=== PATIENT | male | born 1985 | race Caucasian/White ===

== ENCOUNTER 2018-01-19 16:19 | Emergency (ER) | payer OTHER ==
[~2018-01-19] VITALS: Ht 180.3 cm; Wt 142.9 kg
[2018-01-19] MEDS ORDERED: IPRATRPIUM/ALBUTEROL 0.5/2.5MG 3 ML NEBU. ONE (17:09)
[2018-01-19] MEDS ORDERED: IPRATRPIUM/ALBUTEROL 0.5/2.5MG 3 ML NEBU. NEB ONE (17:15)
--- NOTE | 2018-01-19 17:34 | ED.ADGEN ---
Past History Past Medical History: Diabetes, GERD, Other Past Surgical History: No Surgical History Alcohol Use: None Drug Use: None Adult General Chief Complaint Chief Complaint " .. I still got this cough... I ve been sick the past 9 days.. I went to [place] and I followed with Dr. Gallegos.. and just completed my Z- pack... but I am still coughing..." " I coughing so much ... I suspect it made my chest sore..." HPI HPI Patient is a 32 year old male who presents with above hx and complaints of persistent cough. Pt. complaints of generalized chest pain with cough and deep breaths. Pt. denies any trauma. Patient denies any specific ill contacts. Patient denies any travel. Patient denies any history of cardiac disorder. Patient does have a history of reflux. Patient normally follows with Dr. Gallegos. Patient states he was compliant completing his Z-Loenid. Patient also complaining of some subjective fevers. Cough or nonproductive. Review of Systems Review of Systems Constitutional: History of fever or chills [] Eyes: Denies change in visual acuity, redness, or eye pain [] HENT: Denies nasal congestion or sore throat [] Respiratory: History of cough and wheezing Cardiovascular: No additional information not addressed in HPI [] GI: Denies abdominal pain, nausea, vomiting, bloody stools or diarrhea [] : Denies dysuria or hematuria [] Musculoskeletal: Denies back pain or joint pain [] Integument: Denies rash or skin lesions [] Neurologic: Denies headache, focal weakness or sensory changes [] Endocrine: Denies polyuria or polydipsia [] All other systems were reviewed and found to be within normal limits, except as documented in this note. Family History Family History Noncontributory Current Medications Current Medications Current Medications Medications (Trade) Dose Ordered Sig/Matheus Start Time Stop Time Status Last Admin Dose Admin Albuterol Sulfate (Ventolin Hfa) 2 puff 1X ONCE 01/19/18 18:00 01/19/18 18:01 DC 01/19/18 19:29 2 PUFF Albuterol/ Ipratropium (Duoneb) 3 ml STK-MED ONCE 01/19/18 17:09 01/19/18 17:10 DC Ceftriaxone Sodium (Rocephin Im) 1 gm 1X ONCE 01/19/18 23:30 01/19/18 23:31 DC 01/19/18 23:43 1 GM Info (Do NOT chart on this entry -- for MONITORING) 1 each PRN DAILY PRN 01/19/18 21:30 01/20/18 02:39 DC Iohexol (Omnipaque 300 Mg/ml) 75 ml 1X ONCE 01/19/18 21:30 01/19/18 21:31 DC Lactated Ringer's 1,000 ml @ 100 mls/hr Q10H 01/19/18 18:00 01/20/18 02:39 DC 01/19/18 19:21 100 MLS/HR Prednisone (Prednisone) 50 mg 1X ONCE 01/19/18 18:00 01/19/18 18:01 DC 01/19/18 19:17 50 MG Allergies Allergies Allergies Coded Allergies Type Severity Reaction Last Updated Verified codeine Allergy Unknown 09/29/14 No Physical Exam Physical Exam Constitutional: Moderately acute distress, non-toxic appearance. [] HENT: Normocephalic, atraumatic, bilateral external ears normal, oropharynx moist, no oral exudates, nose normal. [] Eyes: PERRLA, EOMI, conjunctiva normal, no discharge. [] Neck: Normal range of motion, no tenderness, supple, no stridor. More than 17 inches circumference Cardiovascular:Heart rate regular rhythm, no murmur []PMI to the left Lungs & Thorax: Bilateral breath sounds equal with scattered wheezes for prominent in bilateral bases on auscultation [] Abdomen: Bowel sounds normal, soft, no tenderness, no masses, no pulsatile masses. [] Obese Skin: Warm, dry, no erythema, no rash. [] Back: No tenderness, no CVA tenderness. [] Extremities: No tenderness, no cyanosis, no clubbing, ROM intact, no edema. No cording appreciated Neurologic: Alert and oriented X 3, normal motor function, normal sensory function, no focal deficits noted. [] Psychologic: Affect anxious, judgement normal, mood normal. [] Current Patient Data Vital Signs Vital Signs Date Time Temp Pulse Resp B/P (MAP) Pulse Ox O2 Delivery O2 Flow Rate FiO2 01/20/18 02:20 98.0 75 20 130/63 (85) 94 Room Air Lab Results Laboratory Tests Test 01/19/18 17:20 01/19/18 19:25 01/19/18 20:09 01/19/18 23:30 Urine Collection Type Unknown Urine Color Straw Urine Clarity Clear Urine pH 7.0 Urine Specific [place] 1.015 Urine Protein Neg (NEG-TRACE) Urine Glucose (UA) Neg mg/dL (NEG) Urine Ketones (Stick) Neg mg/dL (NEG) Urine Blood Small (NEG) Urine Nitrite Neg (NEG) Urine Bilirubin Neg (NEG) Urine Urobilinogen Dipstick 0.2 mg/dL (0.2 mg/dL) Urine Leukocyte Esterase Neg (NEG) Urine RBC 3-5 /HPF (0-2) Urine WBC 1-4 /HPF (0-4) Urine Squamous Epithelial Cells Occ /LPF Urine Bacteria 0 /HPF (0-FEW) Urine Opiates Screen Neg (NEG) Urine Methadone Screen Neg (NEG) Urine Barbiturates Neg (NEG) Urine Phencyclidine Screen Neg (NEG) Urine Amphetamine/Methamphetamine Neg (NEG) Urine Benzodiazepines Screen Neg (NEG) Urine Cocaine Screen Neg (NEG) Urine Cannabinoids Screen Neg (NEG) Urine Ethyl Alcohol Neg (NEG) White Blood Count 12.6 x10^3/uL (4.0-11.0) H Red Blood Count 4.46 x10^6/uL (4.30-5.70) Hemoglobin 13.7 g/dL (13.0-17.5) Hematocrit 40.2 % (39.0-53.0) Mean Corpuscular Volume 90 fL (79-100) Mean Corpuscular Hemoglobin 31 pg (25-35) Mean Corpuscular Hemoglobin Concent 34 g/dL (31-37) Red Cell Distribution Width 13.5 % (11.5-14.5) Platelet Count 274 x10^3/uL (140-400) Neutrophils (%) (Auto) 74 % (31-73) H Lymphocytes (%) (Auto) 15 % (24-48) L Monocytes (%) (Auto) 9 % (0-9) Eosinophils (%) (Auto) 2 % (0-3) Basophils (%) (Auto) 0 % (0-3) Neutrophils # (Auto) 9.3 x10^3uL (1.8-7.7) H Lymphocytes # (Auto) 1.9 x10^3/uL (1.0-4.8) Monocytes # (Auto) 1.1 x10^3/uL (0.0-1.1) Eosinophils # (Auto) 0.2 x10^3/uL (0.0-0.7) Basophils # (Auto) 0.0 x10^3/uL (0.0-0.2) Prothrombin Time 11.5 SEC (9.4-11.4) H Prothrombin Time INR 1.1 (0.9-1.1) PTT 26 SEC (23-33) D-Dimer (Karolyn) 0.61 mg/L (0.00-0.50) H Sodium Level 139 mmol/L (136-145) Potassium Level 3.9 mmol/L (3.5-5.1) Chloride Level 101 mmol/L (98-107) Carbon Dioxide Level 31 mmol/L (21-32) Anion Gap 7 (6-14) Blood Urea Nitrogen 13 mg/dL (8-26) Creatinine 0.7 mg/dL (0.7-1.3) Estimated GFR (Cockcroft-Gault) 129.1 Glucose Level 110 mg/dL (70-99) H Calcium Level 9.1 mg/dL (8.5-10.1) Magnesium Level 2.2 mg/dL (1.8-2.4) Total Bilirubin 0.6 mg/dL (0.2-1.0) Direct Bilirubin 0.1 mg/dL (0.0-0.2) Aspartate Amino Transferase (AST) 23 U/L (15-37) Alanine Aminotransferase (ALT) 35 U/L (16-63) Alkaline Phosphatase 86 U/L (46-116) Creatine Kinase 48 U/L (39-308) Creatine Kinase MB (Mass) 0.8 ng/mL (0.0-3.6) Creatine Kinase MB Relative Index 1.7 % (0-4) Troponin I Quantitative < 0.017 ng/mL (0-0.055) GL-Osi-R-Type Natriuretic Peptide 88 pg/mL (0-124) Total Protein 7.9 g/dL (6.4-8.2) Albumin 3.4 g/dL (3.4-5.0) Influenza Type A (Rapid) Negative (NEGATIVE) Influenza Type B (Rapid) Negative (NEGATIVE) EKG EKG My interpretation EKG shows sinus rhythm at 88 bpm. No findings acute STEMI of contralateral changes.[] Radiology/Procedures Radiology/Procedures My interpretation of chest x-ray shortness borderline cardiomegaly. Has some bilateral basilar atelectasis/infiltrate. No obvious pneumothorax or large consolidated pneumonia[] CT chest shows bilateral basilar atelectasis. CT for pulmonary embolism refused by patient. Course & Med Decision Making Course & Med Decision Making Pertinent Labs and Imaging studies reviewed. (See chart for details). Patient refused placement IV because he did not like IV sticks-patient aware that with out IV could not receive a contrast CT eval. Patient exhibits UCAR capacity. Will give an addition course of Keflex 500 tid , Prednisone 50 x 5 days and Ventolin qid. To follow up with primary. Daily ASA. Return if any concerns. 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 - [] Final Impression Final Impression 1. Cough[] 2. Leukocytosis 3. Elevated d-dimer 4. Bronchitis Problems: Dragon Disclaimer Dragon Disclaimer This electronic medical record was generated, in whole or in part, using a voice recognition dictation system. VASU KING MD Jan 19, 2018 17:34
[2018-01-19] MEDS ORDERED: ALBUTEROL SULFATE 8GM INHALER. INH ONE (18:00)
[2018-01-19] MEDS ORDERED: predniSONE 10 MG TABLET PO ONE (18:00)
[2018-01-19] MEDS ORDERED: IV RINGERS SOLUTION,LACTATED 1,000 ML IV SCH (18:00)
[2018-01-19 18:05] LABS: BARBITURATES NEG (NEG); BENZODIAZEPINES NEG (NEG); CANNABINOIDS NEG (NEG); COCAINE NEG (NEG); METHADONE NEG (NEG); OPIATES NEG (NEG); PHENCYCLIDINE NEG (NEG)
[2018-01-19 18:08] LABS: AMPHETAMINE/METHAMPHETAMINE NEG (NEG)
[2018-01-19 18:13] LABS: BACTERIA,URINE 0 /HPF (0-FEW); BILIRUBIN,URINE NEG (NEG); CLARITY,URINE CLEAR; COLOR,URINE STRAW; GLUCOSE,URINE NEG (NEG); NITRITE,URINE NEG (NEG); SQUAMOUS EPITHELIAL CELL,UR OCC /LPF; UROBILINOGEN,URINE 0.2 mg/dL (0.2 mg/dL)
--- NOTE | 2018-01-19 18:21 | EKG ---
[address] [address] Test Date: 2018-01-19 Test Time: 17:02:52 Pat Name: TARA LEARY Department: Room: Gender: M [employer]: : 1985 Requested By: VASU KING Order Number: [id number] Reading MD: Measurements Intervals [place] Rate: 88 P: 48 MT: 146 QRS: 59 QRSD: 90 T: 41 QT: 344 QTc: 420 Interpretive Statements SINUS RHYTHM NO SPECIFIC ECG ABNORMALITIES RI6.01 No previous ECG available for comparison
[2018-01-19 20:22] LABS: BASO % 0 % (0-3); EOS # 0.2 x10^3/uL (0.0-0.7); EOS % 2 % (0-3); HEMATOCRIT 40.2 % (39.0-53.0); HEMOGLOBIN 13.7 g/dL (13.0-17.5); LYMPH # 1.9 x10^3/uL (1.0-4.8); LYMPH % 15 % (24-48); MEAN CORPUSCULAR HEMOGLOBIN 31 pg (25-35); MEAN CORPUSCULAR HGB CONC 34 g/dL (31-37); MEAN CORPUSCULAR VOLUME 90 fL (79-100); MONO # 1.1 x10^3/uL (0.0-1.1); MONO % 9 % (0-9); NEUT # 9.3 x10^3uL (1.8-7.7); NEUT % 74 % (31-73); PLATELET COUNT 274 x10^3/uL (140-400); RED BLOOD COUNT 4.46 x10^6/uL (4.30-5.70); RED CELL DISTRIBUTION WIDTH 13.5 % (11.5-14.5); WHITE BLOOD COUNT 12.6 x10^3/uL (4.0-11.0)
[2018-01-19 21:09] LABS: ALBUMIN 3.4 g/dL (3.4-5.0); CALCIUM 9.1 mg/dL (8.5-10.1); CREATININE 0.7 mg/dL (0.7-1.3); DIRECT BILIRUBIN 0.1 mg/dL (0.0-0.2); GFR 129.1; MAGNESIUM 2.2 mg/dL (1.8-2.4); POTASSIUM 3.9 mmol/L (3.5-5.1); TOTAL BILIRUBIN 0.6 mg/dL (0.2-1.0); TOTAL PROTEIN 7.9 g/dL (6.4-8.2)
[2018-01-19] MEDS ORDERED: CONTRAST GIVEN MC PRN (21:30)
[2018-01-19] MEDS ORDERED: IOHEXOL 300 MG/ML 75 ML VIAL. IV ONE (21:30)
[2018-01-19] MEDS ORDERED: cefTRIAXone IM 1 GM VIAL IM ONE (23:30)
--- NOTE | 2018-01-19 23:40 | RAD ---
CT of the chest without contrast: Clinical History: Pain. Axial helical images of the chest were obtained without contrast. There is mild patchy opacities in the lung bases. There is no mediastinal or hilar lymphadenopathy. Impression: Mild basilar infiltrates likely discoid atelectasis. PQRS Compliance Statement: One or more of the following individualized dose reduction techniques were utilized for this examination: 1. Automated exposure control 2. Adjustment of the mA and/or kV according to patient size 3. Use of iterative reconstruction technique Electronically signed by: Abhi Tate III, MD (01/19/2018 11:37 PM) [facility] [place]
[2018-01-20 00:18] LABS: INFLUENZA A PATIENT NEGATIVE (NEGATIVE); INFLUENZA B PATIENT NEGATIVE (NEGATIVE)
[2018-01-20] MEDS ORDERED: CEPH-264 PO (01:47)
[2018-01-20] MEDS ORDERED: PRED50TA PO (01:47)
[2018-01-20 02:20] VITALS: BP 130/63
--- NOTE | 2018-01-20 11:22 | RAD ---
CHEST PA LATERAL Clinical Indication: cough Comparison: None. Findings: Normal lung volume. Left lower lung zone heterogenous air space opacities. Normal pulmonary vasculature. No pleural effusion or pneumothorax. The cardiac mediastinal silhouette and great vessels are normal. No acute osseous abnormality. IMPRESSION: Left lower lung zone heterogenous air space opacities could relate to atelectasis. Infectious process is not excluded given patient's history. Recommend continued radiographic follow-up to resolution.
== END 2018-01-20 02:25 | disposition home or self-care (01) ==
LOC: ER 16:19
DX: J40 Bronchitis, not specified as acute or chronic (principal); D72.829 Elevated white blood cell count, unspecified; R79.1 Abnormal coagulation profile; E11.9 Type 2 diabetes mellitus without complications; K21.9 Gastro-esophageal reflux disease without esophagitis; Z88.5 Allergy status to narcotic agent
CPT/HCPCS: 36415; 71046; 71250; 80048; 80076; 80307; 81001; 82553; 83735; 83880; 84443; 84484; 85025; 85379; 85610; 85730; 87804; 93005; 94640; 96372; 99285; J0696; J7120; J7512; J7613; J7620; G0479

== ENCOUNTER 2019-07-04 20:28 | Emergency (ER) | payer OTHER ==
[~2019-07-04 20:28] MED LIST: CEPH-264 PO; PRED50TA PO
--- NOTE | 2019-07-04 20:41 | ED.ADGEN ---
Past History Past Medical History: Diabetes, GERD, Other Past Surgical History: No Surgical History Alcohol Use: None Drug Use: None Adult General Chief Complaint Chief Complaint ".. I got sick from his brother... I am have fever, chills, bones hurt.. sore throat.. just miserable... I went to [place].. they said just use Afrin... " HPI HPI Patient is a 33 year old male who presents with above hx and complaints fever, chills, sore throat, cough, malaise, arthralgia, myalgia and nasal congestion. The patient was seen yesterday at [place] ED advised to use Afrin. Patient has been exposed to 2 children that have flu like symptoms. Patient has not had any travel or specific ill contacts other than family members. Has not received a flu vaccination. Patient normally follows with Dr. Gallegos. Review of Systems Review of Systems Constitutional: Hx. of fever and chills [] Eyes: Denies change in visual acuity, redness, or eye pain [] HENT: Hx. of nasal congestion and sore throat [] Respiratory: Hx. of cough and wheezing. Cardiovascular: No additional information not addressed in HPI [] GI: Denies abdominal pain, nausea, vomiting, bloody stools or diarrhea [] : Denies dysuria or hematuria [] Musculoskeletal: Complaints of arthralgia Integument: Denies rash or skin lesions [] Neurologic: Denies headache, focal weakness or sensory changes [] Endocrine: Denies polyuria or polydipsia [] All other systems were reviewed and found to be within normal limits, except as documented in this note. Family History Family History 2 sons are sick with a viral presentation Current Medications Current Medications Current Medications Medications (Trade) Dose Ordered Sig/Matheus Start Time Stop Time Status Last Admin Dose Admin Albuterol Sulfate (Ventolin Hfa Inhaler) 2 puff 1X ONCE 07/04/19 21:00 07/04/19 21:47 DC 07/04/19 21:15 2 PUFF Ceftriaxone Sodium (Rocephin Im) 1 gm 1X ONCE 07/04/19 21:00 07/04/19 21:47 DC 07/04/19 21:20 1 GM Ceftriaxone Sodium (Rocephin) 1 gm STK-MED ONCE 07/04/19 21:08 07/04/19 21:08 DC Diphenhydramine HCl (Benadryl) 50 mg 1X ONCE 07/04/19 21:00 07/04/19 21:47 DC 07/04/19 21:20 50 MG Oseltamivir Phosphate (Tamiflu) 75 mg 1X ONCE 07/04/19 22:15 07/04/19 22:25 DC 07/04/19 22:20 75 MG Prednisone (Prednisone) 60 mg 1X ONCE 07/04/19 21:00 07/04/19 21:47 DC 07/04/19 21:20 60 MG Allergies Allergies Allergies Coded Allergies Type Severity Reaction Last Updated Verified codeine Allergy Unknown 09/29/14 No Physical Exam Physical Exam Constitutional: in moderately acute distress, non-toxic appearance. [] HENT: Normocephalic, atraumatic, bilateral external ears normal, oropharynx moist, injected pharynx, no oral exudates, nose: Turbinates and rhinorrhea that is clear Eyes: PERRLA, EOMI, conjunctiva normal, no discharge. [] Neck: Normal range of motion, no tenderness, supple, no stridor. [] Cardiovascular: Tachycardia Heart rate regular rhythm, no murmur [] Lungs & Thorax: Bilateral breath sounds with apex with scattered wheezes on auscultation [] Abdomen: Bowel sounds normal, soft, no tenderness, no masses, no pulsatile masses. [] Obese Skin: Warm, dry, no erythema, no rash. [] Back: No tenderness, no CVA tenderness. [] Extremities: No tenderness, no cyanosis, no clubbing, ROM intact, ankle edema. [] Neurologic: Alert and oriented X 3, normal motor function, normal sensory function, no focal deficits noted. [] Psychologic: Affect anxious, judgement normal, mood normal. [] Current Patient Data Vital Signs Vital Signs Date Time Temp Pulse Resp B/P (MAP) Pulse Ox O2 Delivery O2 Flow Rate FiO2 07/04/19 20:52 98.3 89 20 94 Room Air Lab Results Laboratory Tests Test 07/04/19 21:15 Influenza Type A (Rapid) Negative (NEGATIVE) Influenza Type B (Rapid) Positive (NEGATIVE) Group A Streptococcus Rapid Negative (NEGATIVE) EKG EKG [] Radiology/Procedures Radiology/Procedures [][address] [place] [id number] IMAGING REPORT Signed PATIENT: TARA LEARY ACCOUNT: [id number] : 1985 LOCATION: ER AGE: 33 SEX: M EXAM STATUS: REG ER ORD. PHYSICIAN: VASU KING MD REASON: Sinus pressure and pain, hx sinus infection PROCEDURE: CT MAXILLOFACIAL WO CONTRAST Exam: CT maxillofacial without contrast INDICATION: Sinus pressure and pain TECHNIQUE: Sequential axial images through the maxillofacial obtained without IV contrast. Sagittal and coronal reformatted images were reconstructed from the axial data and reviewed. Comparisons: None FINDINGS: Visualized intracranial structures are unremarkable. Visualized portions of the paranasal sinuses and mastoid air cells are well-pneumatized. Frothy secretions are noted within the nasal cavity. Globes and intraorbital contents are normal. No acute fractures seen. IMPRESSION: 1. Visualized paranasal sinuses are well-pneumatized. 2. Frothy secretions within the nasal cavity. Exposure: One or more of the following in the visualized dose reduction techniques were utilized for this examination: 1. Automated exposure control 2. Adjustment of the MA and/or KV according to patient size 3. Use of iterative of reconstructive technique Electronically signed by: Deshaun Mejia MD (07/04/2019 9:22 PM) [facility] DICTATED AND SIGNED BY: DESHAUN MEJIA MD DATE: 07/04/192121 CC: RADHA GALLEGOS MD; VASU KING MD ~ Course & Med Decision Making Course & Med Decision Making Pertinent Labs and Imaging studies reviewed. (See chart for details) Patient push fluids. Take Tylenol and ibuprofen for discomfort. Take Tamiflu 75 mg twice a day. Benadryl 50 mg up to 4 times a day may be helpful for congestion and drainage. Due to nasal irrigations with normal saline. Continue Flonase and Afrin as needed. Follow-up primary care. Return if any concerns. Still recommend getting flu vaccination when over this acute illness because he could still get influenza B. MDI 2 puffs 4 times a day. [] Final Impression Final Impression 1. Influenza A[] Dragon Disclaimer Dragon Disclaimer This electronic medical record was generated, in whole or in part, using a voice recognition dictation system. Dragon Disclaimer This chart was dictated in whole or in part using Voice Recognition software in a busy, high-work load, and often noisy Emergency Department environment. It may contain unintended and wholly unrecognized errors or omissions. VASU KING MD Jul 04, 2019 20:41
[2019-07-04 20:52] VITALS: BP 123/88
[2019-07-04] MEDS ORDERED: ALBUTEROL SULFATE 8GM INHALER. INH ONE (21:00)
[2019-07-04] MEDS ORDERED: cefTRIAXone IM 1 GM VIAL IM ONE (21:00)
[2019-07-04] MEDS ORDERED: diphenhydrAMINE HCL 25 MG CAPSULE PO ONE (21:00)
[2019-07-04] MEDS ORDERED: predniSONE 20 MG TABLET PO ONE (21:00)
[2019-07-04] MEDS ORDERED: cefTRIAXone SODIUM 1 GM VIAL ONE (21:08)
--- NOTE | 2019-07-04 21:25 | RAD ---
Exam: CT maxillofacial without contrast INDICATION: Sinus pressure and pain TECHNIQUE: Sequential axial images through the maxillofacial obtained without IV contrast. Sagittal and coronal reformatted images were reconstructed from the axial data and reviewed. Comparisons: None FINDINGS: Visualized intracranial structures are unremarkable. Visualized portions of the paranasal sinuses and mastoid air cells are well-pneumatized. Frothy secretions are noted within the nasal cavity. Globes and intraorbital contents are normal. No acute fractures seen. IMPRESSION: 1. Visualized paranasal sinuses are well-pneumatized. 2. Frothy secretions within the nasal cavity. Exposure: One or more of the following in the visualized dose reduction techniques were utilized for this examination: 1. Automated exposure control 2. Adjustment of the MA and/or KV according to patient size 3. Use of iterative of reconstructive technique Electronically signed by: Deshaun Meraz MD (07/04/2019 9:22 PM) [facility]
[2019-07-04 21:56] LABS: INFLUENZA A PATIENT NEGATIVE (NEGATIVE)
[2019-07-04 21:57] LABS: INFLUENZA B PATIENT POSITIVE (NEGATIVE)
[2019-07-04] MEDS ORDERED: OSELTAMIVIR 75 MG CAPSULE PO ONE (22:15)
[2019-07-04] MEDS ORDERED: OSEL75CA PO (22:20)
== END 2019-07-04 22:35 | disposition home or self-care (01) ==
LOC: ER 20:28
DX: J10.1 Influenza due to other identified influenza virus with other respiratory manifestations (principal); E11.9 Type 2 diabetes mellitus without complications; K21.9 Gastro-esophageal reflux disease without esophagitis; Z88.5 Allergy status to narcotic agent
CPT/HCPCS: 70486; 87070; 87804; 87880; 94640; 96372; 99285; J0696; J7512; J7613; Q0163

== ENCOUNTER → 2020-07-16 | Outpatient (CLI) | payer OTHER ==
[~2020-07-16] MED LIST changes: +OSEL75CA PO
--- NOTE | 2020-07-16 16:46 | RAD ---
CHEST PA LATERAL Clinical indications: Shortness of breath COMPARISON: January 19, 2018. Findings: No acute lung infiltrate or pleural effusion or pulmonary edema or pneumothorax is seen. The heart size, pulmonary vasculature, mediastinum and both soumya are stable. The osseous structures appear intact. Impression: No acute radiographic abnormality is seen. Electronically signed by: Harley Ayoub MD (07/16/2020 4:43 PM) [id number]
--- NOTE | 2020-07-16 16:48 | RAD ---
7 view lumbar spine series including flexion and extension lateral views Clinical indications: Back pain. FINDINGS: The transverse processes are intact. No compression fracture or discitis or lytic process is evident. No anterolisthesis or spondylolysis is evident. No abnormal movement between flexion and extension is seen. No significant degenerative disc space narrowing or endplate spurring is seen. IMPRESSION: No significant osseous abnormality. Electronically signed by: Harley Ayoub MD (07/16/2020 4:45 PM) [id number]
== END ==
LOC: RAD 15:44
PROVIDERS: ATTEND Family Medicine
DX: R06.02 Shortness of breath (principal); M54.5 Low back pain
CPT/HCPCS: 71046; 72114

== ENCOUNTER 2020-11-11 05:16 | Emergency (ER) | payer OTHER ==
[~2020-11-11] VITALS: Ht 180.3 cm; Wt 159.0 kg
--- NOTE | 2020-11-11 05:24 | PHYS DOC ---
Past History Past Medical History: Diabetes, GERD, Other Past Surgical History: No Surgical History Alcohol Use: Rarely Drug Use: None General Adult HPI: HPI: ".. I was getting showed ... and ready to go to work.. at [facility] [employer].. . an d I guess I slipped on the water.. and fell hard.. I hurting bad in the lower lumbar area.. Rt. hip.. and banged this Lt elbow..." Patient is a 35 year old male [employer], who presents with above hx and complaints slip and fall in the shower this morning. Patient has marked lumbar sacral pain and muscle spasm. Does have some radiation into right hip. Right hip is painful on movement. Patient also has a contusion to left elbow. Patient has past medical history of diabetes, hypertension, and morbid obesity. Patient normally follows with Dr. Gallegos. No history recent travel. Has been exposed to inmates who have Covid. Review of Systems: Review of Systems: Constitutional: Denies fever or chills Eyes: Denies change in visual acuity HENT: Denies nasal congestion or sore throat Respiratory: Denies cough or shortness of breath Cardiovascular: Denies chest pain or edema GI: Denies abdominal pain, nausea, vomiting, bloody stools or diarrhea : Denies dysuria Musculoskeletal: Planes of lumbar sacral back pain, right hip and left elbow joint pain Integument: Denies rash Neurologic: Denies headache, focal weakness or sensory changes Endocrine: Denies polyuria or polydipsia Lymphatic: Denies swollen glands Psychiatric: Denies depression or anxiety Family History: Family History: Noncontributory to presentation Current Medications: Current Meds: See nursing for home meds. Allergies: Allergies: Allergies Coded Allergies Type Severity Reaction Last Updated Verified codeine Allergy Unknown 09/29/14 No Physical Exam: PE: Constitutional: Moderate acute distress, non-toxic appearance. [] HENT: Normocephalic, atraumatic, bilateral external ears normal, oropharynx moist, no oral exudates, nose normal. [] Eyes: PERRLA, EOMI, conjunctiva normal, no discharge. [] Neck: Normal range of motion, no tenderness, supple, no stridor. [] Cardiovascular: Tachycardia heart rate regular rhythm, no murmur [] the bedside monitor shows a sinus rhythm. Lungs & Thorax: Bilateral breath sounds clear to auscultation [] Abdomen: Bowel sounds normal, soft, no tenderness, no masses, no pulsatile masses. Morbidly obese Skin: Warm, dry, no erythema, no rash. [] Back: Lumbar sacral muscle spasms and tenderness, no CVA tenderness. [] Extremities: No tenderness, no cyanosis, no clubbing, ROM intact, no edema. Except the findings right hip and left elbow tenderness Neurologic: Alert and oriented X 3, normal motor function, normal sensory fu nction, no focal deficits noted. [] Psychologic: Affect anxious, judgement normal, mood normal. [] EKG: EKG: [] Radiology/Procedures: Radiology/Procedures: [address] [address] IMAGING REPORT Signed PATIENT: TARA ESCOBAR: [id number] : 1985 LOCATION: ER AGE: 35 SEX: M EXAM STATUS: REG ER ORD. PHYSICIAN: VASU KING MD REASON: Fall, left elbow pain PROCEDURE: ELBOW LEFT 3V Three-view left elbow radiographs 11/11/2020 CLINICAL HISTORY: Fall with injury to the left elbow. AP, lateral and oblique digital radiographs left elbow were obtained. No fracture or dislocation of the left elbow is seen. There is no radiographic evidence of a joint effusion. IMPRESSION: No fracture or dislocation of the left elbow is seen. Electronically signed by: Dario Freeman MD (11/11/2020 6:39 AM) [id number] DICTATED AND SIGNED BY: DARIO FREEMAN MD DATE: 11/11/20637 CC: RADHA GALLEGOS MD; VASU KING MD ~MTH0 0 [[address] [address] IMAGING REPORT Signed PATIENT: TARA ESCOBAR: [id number] : 1985 LOCATION: ER AGE: 35 SEX: M EXAM STATUS: REG ER ORD. PHYSICIAN: VASU KING MD REASON: Fall, lower back pain PROCEDURE: CT LUMBAR SPINE WO CONTRAST CT scan of the lumbar spine without contrast 11/11/2020 CLINICAL HISTORY: Fall with low back pain. TECHNIQUE: Unenhanced, contiguous, 0.625 mm axial sections were obtained through the lumbar spine. 3 mm reconstructed sagittal, axial and coronal images were obtained. One or more of the following individualized dose reduction techniques were utilized for this study: 1. Automated exposure control. 2. Adjustment of the mA and/or kV according to patient size. 3. Use of iterative reconstruction technique. FINDINGS: Sagittal and coronal reconstructed images demonstrate minimal S-shaped curvature of the thoracolumbar spine. No fracture or subluxation of the lumbar vertebrae is seen. IMPRESSION: No fracture or subluxation of the lumbar vertebrae is seen. Electronically signed by: Dario Freeman MD (11/11/2020 6:22 AM) [id number] DICTATED AND SIGNED BY: DARIO FREEMAN MD DATE: 11/11/20618 CC: RADHA GALLEGOS MD; VASU KING MD ~MTH0 0 ][place] [address] IMAGING REPORT Signed PATIENT: ARLENE RODRIGUEZ ACCOUNT: [id number] : 04/01/1971 LOCATION: ER AGE: 49 SEX: M EXAM STATUS: REG ER ORD. PHYSICIAN: VASU KING MD REASON: cp, RECENT LEFT HIP IMPINGEMENT SURGERY PROCEDURE: ACUTE ABDOMEN SERIES Acute abdominal series to include a PA chest radiograph 11/08/2020 Clinical History: Chest and abdominal pain. A PA digital radiograph of the chest was obtained. Two AP supine and an erect AP digital radiographs of the abdomen/pelvis were obtained. No previous studies are available for comparison. The cardiac and mediastinal silhouettes are within normal limits in size and configuration. No pulmonary infiltrate is seen. No pleural effusion or pneumothorax is noted. The abdominal bowel gas pattern is nonobstructive. A moderate to large amount of stool is seen throughout the colon. There is no evidence of free air. No radiopaque calculus is seen. Calcifications are seen within the pelvis consistent with phleboliths. Very mild degenerative changes are seen involving the lumbar spine. Mild degenerative changes are seen involving both hips. IMPRESSION: Nonobstructive bowel gas pattern. Moderate to large amount of stool is seen throughout the colon. Electronically signed by: Dario Freeman MD (11/08/2020 4:33 AM) [id number] DICTATED AND SIGNED BY: DARIO FREEMAN MD DATE: 11/08/20 0429 CC: VASU KING MD; MELODY CONTRERAS DO ~MTH0 0 Heart Score: HEART Score for Chest Pain: HEART Score for Chest Pain Response (Comments) Value History Slighlty/Non-Suspicious 0 ECG Normal 0 Age < 45 0 Risk Factors 1 or 2 Risk Factors 1 Total 1 Risk Factors: Risk Factors: DM, Current or recent (<one month) smoker, HTN, HLP, family history of CAD, obesity. Risk Scores: Score 0 - 3: 2.5% MACE over next 6 weeks - Discharge Home Score 4 - 6: 20.3% MACE over next 6 weeks - Admit for Clinical Observation Score 7 - 10: 72.7% MACE over next 6 weeks - Early Invasive Strategies Course & Med Decision Making: Course & Med Decision Making Pertinent Labs and Imaging studies reviewed. (See chart for details) Patient use ice packs as needed. Rest. Tylenol and ibuprofen for pain. May take Vicoprofen up to 4 times a day for marked pain. Take Flexeril 10 mg with 3 times a day for muscle spasms. Return if any concerns. Impression; 1. Slip and fall 2. Contusions 3. Lumbar sacral muscle spasms and contusion 4. Morbid obesity 5. Diabetes [] Dragon Disclaimer: Dragon Disclaimer: This electronic medical record was generated, in whole or in part, using a voice recognition dictation system. Departure Departure: Referrals: RADHA GALLEGOS MD (PCP) Scripts Hydrocodone/Ibuprofen (HYDROCODONE-IBUPROFEN 7.5-200 ) 1 Each Tablet 1 TAB PO PRN Q6HRS PRN for PAIN, #30 TAB 0 Refills Prov: VASU KING MD 11/11/20 Cyclobenzaprine Hcl (CYCLOBENZAPRINE HCL) 10 Mg Tablet 10 MG PO tidprn for sprain, muscle spasms, #30 TAB Prov: VASU KING MD 11/11/20 Dragon Disclaimer This chart was dictated in whole or in part using Voice Recognition software in a busy, high-work load, and often noisy Emergency Department environment. It may contain unintended and wholly unrecognized errors or omissions. Dragon Disclaimer This chart was dictated in whole or in part using Voice Recognition software in a busy, high-work load, and often noisy Emergency Department environment. It may contain unintended and wholly unrecognized errors or omissions. Dragon Disclaimer This chart was dictated in whole or in part using Voice Recognition software in a busy, high-work load, and often noisy Emergency Department environment. It may contain unintended and wholly unrecognized errors or omissions. VASU KING MD Nov 11, 2020 05:24
[2020-11-11] MEDS ORDERED: HYDR-1179 PO (05:38)
[2020-11-11] MEDS ORDERED: CYCL-331 PO (05:38)
[2020-11-11] MEDS ORDERED: MORPHINE SULFATE 10 MG/ML SYRINGE. SQ ONE (05:45)
[2020-11-11] MEDS ORDERED: ORPHENADRINE CITRATE 60 MG/2 ML VIAL. IM ONE (05:45)
--- NOTE | 2020-11-11 06:24 | RAD ---
CT scan of the lumbar spine without contrast 11/11/2020 CLINICAL HISTORY: Fall with low back pain. TECHNIQUE: Unenhanced, contiguous, 0.625 mm axial sections were obtained through the lumbar spine. 3 mm reconstructed sagittal, axial and coronal images were obtained. One or more of the following individualized dose reduction techniques were utilized for this study: 1. Automated exposure control. 2. Adjustment of the mA and/or kV according to patient size. 3. Use of iterative reconstruction technique. FINDINGS: Sagittal and coronal reconstructed images demonstrate minimal S-shaped curvature of the tho racolumbar spine. No fracture or subluxation of the lumbar vertebrae is seen. IMPRESSION: No fracture or subluxation of the lumbar vertebrae is seen. Electronically signed by: Dario Freeman MD (11/11/2020 6:22 AM) [id number]
--- NOTE | 2020-11-11 06:28 | RAD ---
CT scan of the pelvis without contrast 11/11/2020 CLINICAL HISTORY: Fall with pelvic and right hip pain. TECHNIQUE: Unenhanced, contiguous, 0.625 mm axial sections were obtained through the pelvis and both hips. 5 mm reconstructed sagittal, axial and coronal images were obtained. One or more of the following individualized dose reduction techniques were utilized for this study: 1. Automated exposure control. 2. Adjustment of the mA and/or kV according to patient size. 3. Use of iterative reconstruction technique. FINDINGS: No pelvic bone fractures seen. No fracture or dislocation of either hip is noted. No free f luid is seen. No pelvic hematoma is noted. A moderate enthesophyte is seen bridging the superior aspe ct of the right SI joint. IMPRESSION: No fracture or dislocation is seen. Electronically signed by: Dario Freeman MD (11/11/2020 6:26 AM) [id number]
--- NOTE | 2020-11-11 06:41 | RAD ---
Three-view left elbow radiographs 11/11/2020 CLINICAL HISTORY: Fall with injury to the left elbow. AP, lateral and oblique digital radiographs left elbow were obtained. No fracture or dislocation of t he left elbow is seen. There is no radiographic evidence of a joint effusion. IMPRESSION: No fracture or dislocation of the left elbow is seen. Electronically signed by: Dario Freeman MD (11/11/2020 6:39 AM) [id number]
[2020-11-11 07:02] VITALS: BP 124/71
== END 2020-11-11 07:13 | disposition home or self-care (01) ==
LOC: ER 05:16
DX: S50.02XA Contusion of left elbow, initial encounter (principal); M62.838 Other muscle spasm; M25.551 Pain in right hip; E11.9 Type 2 diabetes mellitus without complications; K21.9 Gastro-esophageal reflux disease without esophagitis; E66.01 Morbid (severe) obesity due to excess calories; Z68.42 Body mass index [BMI] 45.0-49.9, adult; Z88.5 Allergy status to narcotic agent; W01.0XXA Fall on same level from slipping, tripping and stumbling without subsequent striking against object, initial encounter; Y93.89 Activity, other specified; Y92.89 Other specified places as the place of occurrence of the external cause; Y99.8 Other external cause status
CPT/HCPCS: 72131; 72192; 73080; 96372; 99285; J2270; J2360

== ENCOUNTER → 2021-01-21 | Outpatient (CLI) | payer OTHER ==
[~2021-01-21] MED LIST changes: +CYCL-331 PO; +HYDR-1179 PO
--- NOTE | 2021-01-21 11:53 | RAD ---
EXAM: Abdomen sonogram. HISTORY: Pain. TECHNIQUE: Sonographic imaging of the abdomen was performed. COMPARISON: None. FINDINGS: The exam is extremely limited due to patient body habitus. There is hepatomegaly and hepati c steatosis. No focal hepatic lesion is seen. The common bile duct is obscured. There is a suspected gallstone within the gallbladder. There is a positive sonographic Pathak's sign. The gallbladder wall is not well assessed given aforementioned study limitations. The right kidney is unremarkable. The p ancreas, inferior vena cava and aorta are obscured. IMPRESSION: 1. Limited exam due to patient body habitus. There is cholelithiasis and there is a positive sonograp hic Pathak's sign. However, the gallbladder wall is not well seen to assess for cholecystitis. 2. Hepatomegaly and hepatic steatosis. 3. Obscured midline structures. Electronically signed by: Marian Breaux MD (01/21/2021 11:51 AM) [id number]
== END ==
LOC: US 10:35
PROVIDERS: ATTEND Family Medicine
DX: K80.20 Calculus of gallbladder without cholecystitis without obstruction (principal); R16.0 Hepatomegaly, not elsewhere classified; K76.0 Fatty (change of) liver, not elsewhere classified
CPT/HCPCS: 76705